=== PATIENT | male | born 1970 | race Hispanic/Latino ===

== ENCOUNTER 2016-11-08 02:00 | Emergency (ER) | payer SELFPAY ==
[2016-11-08] MEDS ORDERED: NACL 0.9% 1000 ML 1,000 ML IV ONE (02:06)
[2016-11-08] MEDS ORDERED: NACL 0.9% 1000 ML 2,000 ML ONE (02:06)
[2016-11-08] MEDS ORDERED: CALCIUM CHLORIDE IV ONE ×5 (02:15→20:23)
--- NOTE | 2016-11-08 02:31 | Emergency Department Report ---
ED CPR HPI - General Stated Complaint: CARDIAC ARREST Time Seen by Provider: 11/08/16 02:27 - History of Present Illness Initial Comments: Pt is a 46 yr old male who presented to the ED in cardiac arrest. As per EMS, patient was at work earlier today and was experiencing chest pain. Pt had refused to come to the ED, took some medication and continued to work. [employer] patient slumped over in his chair and fell to the ground. Upon EMS arrival to the scene the patient was in cardiac arrest, call received at 0112. Pt was intubated with 7.5 ETT with no medications, given 3 shocks for initial rythym of vifb, then progressed to asystole. Pt was also give 2 rounds of epi and 1amp of bicarb before arrival. Upon arrival into the ED at 0145 patient was receiving compressions, being ventilated via BVM, and had a R IJ line. No neuro exam appreciated, patient had cool and cyanotic extremities. Pupils dilated and unresponsive. Pt was given a total of 6 amps of epinephrine, 1 bicarb, 1 calcium chloride, Dextrose 25gm, 1L NS IVF Bedside U/S done no cardiac motion, patient asystole, pale, cold, and mottled Time of : 021, patient asystol in every lead, no heart sounds, no cardiac motion on US, pupils fixed and dilated, no respirations, no heart sounds - Related Data Home Medications Medication Instructions Recorded Confirmed Last Taken ALPRAZolam [Xanax TAB] 1 mg PO QAM PRN 12/18/15 12/21/15 12/20/15 19:00 Aspirin [Aspirin TAB] 325 mg PO ONCE 12/18/15 12/21/15 12/20/15 19:00 Carisoprodol [Soma] 350 mg PO TID 12/18/15 12/21/15 12/20/15 19:00 Omeprazole Magnesium [PriLOSEC Otc] 20 mg PO QDAY 12/18/15 12/21/15 12/20/15 19: 00 Oxycodone HCl/Acetaminophen 1 each PO Q6HR PRN 12/18/15 12/21/15 12/20/15 19:00 [Percocet 7.5/325 mg] Zolpidem [Ambien] 10 mg PO QHS 12/18/15 12/21/15 Unknown ALPRAZolam [Xanax TAB] 2 mg PO HS 12/21/15 12/21/15 12/20/15 17:00 2 mg Previous Rx's Medication Instructions Recorded Last Taken Type oxyCODONE /ACETAMINOPHEN [Percocet 1 tab PO Q4HR PRN #30 tab 12/24/15 Unknown Rx 5/325] Allergies Allergy/AdvReac Type Severity Reaction Status Date / Time codeine Allergy Unknown Verified 12/18/15 16:16 clopidogrel bisulfate AdvReac Severe Shortness Verified 12/21/15 07:55 [From Plavix] of Breath ED Review of Systems ROS: Stated complaint: CARDIAC ARREST Other details as noted in HPI Comment: Unobtainable due to pts medical conditions ED Past Medical Hx - Past Medical History Hx Hypertension: No Hx Heart Attack/AMI: No Hx GERD: Yes Hx Liver Disease: No Hx Renal Disease: Yes (stones) Hx Headaches / Migraines: Yes (MIGRAINES) Hx Seizures: No Hx Asthma: Yes ( A CHILD " GREW OUT OF IT") - Social History Smoking Status: Former Smoker - Medications Home Medications: Home Medications Medication Instructions Recorded Confirmed Last Taken Type ALPRAZolam [Xanax TAB] 1 mg PO QAM PRN 12/18/15 12/21/15 12/20/15 19:00 History Aspirin [Aspirin TAB] 325 mg PO ONCE 12/18/15 12/21/15 12/20/15 19:00 History Carisoprodol [Soma] 350 mg PO TID 12/18/15 12/21/15 12/20/15 19:00 History Omeprazole Magnesium [PriLOSEC Otc] 20 mg PO QDAY 12/18/15 12/21/15 12/20/15 19: 00 History Oxycodone HCl/Acetaminophen 1 each PO Q6HR PRN 12/18/15 12/21/15 12/20/15 19:00 History [Percocet 7.5/325 mg] Zolpidem [Ambien] 10 mg PO QHS 12/18/15 12/21/15 Unknown History ALPRAZolam [Xanax TAB] 2 mg PO HS 12/21/15 12/21/15 12/20/15 17:00 History 2 mg oxyCODONE /ACETAMINOPHEN [Percocet 1 tab PO Q4HR PRN #30 tab 12/24/15 Unknown Rx 5/325] ED Physical Exam - General Limitations: Other (Intubated CPR in progress) - Head Head exam: Present: atraumatic, normocephalic, normal inspection - Eye Eye exam: Present: normal appearance. Absent: scleral icterus Pupils: Present: other (fixed and dilated) - ENT ENT exam: Present: other (ETT in place) - Neck Neck exam: Present: normal inspection - Respiratory Respiratory exam: Present: rhonchi, other (intubated) - Cardiovascular Cardiovascular Exam: Present: other (Cardiac arrest) - GI/Abdominal GI/Abdominal exam: Present: soft. Absent: distended - exam: Present: normal inspection External exam: Present: normal external exam - Extremities Exam Extremities exam: Present: normal inspection - Back Exam Back exam: Present: normal inspection - Neurological Exam Neurological exam: Present: other (Intubated, CPR in progress) - Skin Skin exam: Present: cyanosis - Central Line Placement Right Femoral Consent Obtained: emergent situation Time Out Performed: Yes Patient Placed on Monitor/Pulse Ox: Yes MD Prep: gloves Central Line Prep: Chlorhexidine scrub Ultrasound Used for Placement: No (Emergen code situation) Central Line Lumen Inserted: triple Bloods Obtained for Lab: Yes Central Line Position: good blood return, all ports aspirated, flus, other ( taped in place during emergent situation) Dressing Applied: sterile gauze/tape Patient Tolerated Procedure: well, no complications Critical Care Time: Yes (CPR ) Critical care time in (mins) excluding proc time.: 45 (minutes) Critical care attestation.: If time is entered above; I have spent that time in minutes in the direct care of this critically ill patient, excluding procedure time. Critical Care Time: 45 minutes ED Disposition Condition: Stable Referrals: PRIMARY CARE, [Primary Care Provider] - 3-5 Days
[2016-11-08] MEDS ORDERED: ADRENALIN ONE (20:23)
[2016-11-08] MEDS ORDERED: D50W (25GM) IV ONE (20:23)
[2016-11-08] MEDS ORDERED: SODIUM BICARBONATE IV ONE (20:23)
== END 2016-11-08 05:32 ==
LOC: ED 02:00
DX: I46.9 Cardiac arrest, cause unspecified (principal); K21.9 Gastro-esophageal reflux disease without esophagitis; G43.909 Migraine, unspecified, not intractable, without status migrainosus; J45.909 Unspecified asthma, uncomplicated; Z79.82 Long term (current) use of aspirin; Z88.5 Allergy status to narcotic agent
CPT/HCPCS: 36556; 92950; 96360; 99291; J0171; J7030